=== PATIENT | female | born 1985 | race Caucasian/White ===

== ENCOUNTER 2016-10-20 20:23 | Emergency (ER) | payer OTHER ==
[~2016-10-20] VITALS: Ht 172.7 cm; Wt 70.4 kg
[2016-10-20 20:31] VITALS: BP 147/93; PULSE 90; RESP 18; TEMP 98.4; O2SAT 99
--- NOTE | 2016-10-20 21:04 | PD ---
HPI Chief Complaint: Flank/Kidney Pain Time Seen by Provider: 20:58 Travel History International Travel<30 days: No Contact w/Intl Traveler<30days: No Traveled to known affect area: No History of Present Illness HPI This 31-year-old female is complaining of left flank pain. The pain came on fairly abruptly around 2:00 this afternoon. It is quite severe. She also has some pain in the left side of her abdomen for kidney stone about 34 years ago. At that time was told that there are other stones in her belly. He has passed some. He has been nauseated but she has not vomited. She has not noted any blood in her urine. The pain is severe and constant PFSH Past Medical History Kidney Stones: Yes Immunizations Current: No Influenza Vaccination: No ?: Unknown LMP: 10/06/16 : 1 Para: 1 Miscarriage: 0 Past Surgical History Section: Yes Social History Alcohol Use: No Tobacco Use: No Substance Use: No Allergies-Medications (Allergen,Severity, Reaction): Coded Allergies: No Known Allergies (Verified , 10/20/16) Reported Meds & Prescriptions Reported Meds & Active Scripts Active No Active Prescriptions or Reported Medications Review of Systems General / Constitutional: No: Fever, Chills Eyes: No: Diploplia, Blurred Vision HENT: No: Headaches, Vertigo Cardiovascular: No: Chest Pain or Discomfort, Palpitations Respiratory: No: Shortness of Breath, Wheezing Gastrointestinal: Positive: Nausea, Abdominal Pain, No: Vomiting Genitourinary: Positive: Flank Pain Musculoskeletal: No: Myalgias, Arthralgias Skin: No Rash Neurologic: No: Weakness, Dizziness Psychiatric: No: Anxiety Hematologic/Lymphatic: No: Easy Bruising Physical Exam Narrative GENERAL: Well-developed female SKIN: Focused skin assessment warm/dry. HEAD: Atraumatic. Normocephalic. EYES: Pupils equal and round. No scleral icterus. No injection or drainage. ENT: No nasal bleeding or discharge. Mucous membranes pink and moist. NECK: Trachea midline. No JVD. CARDIOVASCULAR: Regular rate and rhythm. No murmur appreciated. RESPIRATORY: No accessory muscle use. Clear to auscultation. Breath sounds equal bilaterally. GASTROINTESTINAL: Abdomen soft, non-tender, nondistended. Hepatic and splenic margins not palpable. There is some left CVA tenderness MUSCULOSKELETAL: No obvious deformities. No clubbing. No cyanosis. No edema. NEUROLOGICAL: Awake and alert. No obvious cranial nerve deficits. Motor grossly within normal limits. Normal speech. PSYCHIATRIC: Appropriate mood and affect; insight and judgment normal. Data Data Last Documented VS Vital Signs Date Time Temp Pulse Resp B/P Pulse Ox O2 Delivery O2 Flow Rate FiO2 10/20/16 22:08 102 109/61 99 Room Air 10/20/16 20:31 98.4 18 Orders Complete Blood Count With Diff (10/20/16 21:02) Basic Metabolic Panel (Bmp) (10/20/16 21:02) Urinalysis - C+S If Indicated (10/20/16 21:02) Sodium Chlor 0.9% 1000 Ml Inj (Ns 1000 M (10/20/16 21:15) Ondansetron Inj (Zofran Inj) (10/20/16 21:15) Ketorolac Inj (Toradol Inj) (10/20/16 21:15) Hydromorphone Pf Inj (Dilaudid Pf Inj) (10/20/16 21:15) Urine Culture (10/20/16 20:58) Ct Abd/Pel W/O Iv Contrast (10/20/16 21:44) Ed Urine Pregnancytest Poc (10/20/16 21:46) Ceftriaxone Inj (Rocephin Inj) (10/20/16 22:00) Labs Laboratory Tests Test 10/20/16 20:58 White Blood Count 12.7 TH/MM3 Red Blood Count 4.63 MIL/MM3 Hemoglobin 14.2 GM/DL Hematocrit 41.6 % Mean Corpuscular Volume 89.8 FL Mean Corpuscular Hemoglobin 30.8 PG Mean Corpuscular Hemoglobin 34.3 % Concent Red Cell Distribution Width 12.4 % Platelet Count 171 TH/MM3 Mean Platelet Volume 10.4 FL Neutrophils (%) (Auto) 71.6 % Lymphocytes (%) (Auto) 18.9 % Monocytes (%) (Auto) 6.5 % Eosinophils (%) (Auto) 2.0 % Basophils (%) (Auto) 1.0 % Neutrophils # (Auto) 9.1 TH/MM3 Lymphocytes # (Auto) 2.4 TH/MM3 Monocytes # (Auto) 0.8 TH/MM3 Eosinophils # (Auto) 0.3 TH/MM3 Basophils # (Auto) 0.1 TH/MM3 CBC Comment DIFF FINAL Differential Comment Urine Color YELLOW Urine Turbidity CLEAR Urine pH 6.0 Urine Specific [place] 1.005 Urine Protein TRACE mg/dL Urine Glucose (UA) NEG mg/dL Urine Ketones NEG mg/dL Urine Occult Blood MOD Urine Nitrite NEG Urine Bilirubin NEG Urine Leukocyte Esterase MOD Urine RBC 0-3 /hpf Urine WBC 25-49 /hpf Urine WBC Clumps FEW Urine Squamous Epithelial 0-5 /hpf Cells Urine Bacteria FEW /hpf Microscopic Urinalysis Comment CULTURE INDICATED Sodium Level 141 MEQ/L Potassium Level 3.4 MEQ/L Chloride Level 103 MEQ/L Carbon Dioxide Level 29.6 MEQ/L Anion Gap 8 MEQ/L Blood Urea Nitrogen 11 MG/DL Creatinine 0.71 MG/DL Estimat Glomerular Filtration 96 ML/MIN Rate Random Glucose 85 MG/DL Calcium Level 9.1 MG/DL [facility] Medical Decision Making Medical Screen Exam Complete: Yes Emergency Medical Condition: Yes Medical Record Reviewed: Yes Differential Diagnosis Differential includes musculoskeletal pain, pyelonephritis, renal colic Narrative Course Urine does show evidence of infection but that patient's pain seemed out of proportion to be simple pyelonephritis. I have ordered a CT to assess for possible stone. CT scan has been done. There is no acute abnormality. There are nonobstructing small right renal calculi. 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 Patient has received Rocephin. She'll be released with prescription for Bactrim and Percocet Diagnosis Primary Impression: Pyelonephritis Departure Forms: Tests/Procedures, Work Release Enter return to work date: Oct 23, 2016 Scripts Oxycodone-Acetaminophen (Percocet)7.5-325 mg Tab1 Tab PO Q4H PRN (PAIN) #20 TAB Ref 0 Prov:Alec Lazaro MD 10/20/16 Sulfamethoxazole-Trimethoprim (Bactrim DS)800-160 Mg Tab1 Tab PO BID #14 TAB Ref 0 Prov:Alec Lazaro MD 10/20/16 Disposition: 01 DISCHARGE HOME Condition: Stable Alec Lazaro MD Oct 20, 2016 21:04
[2016-10-20] MEDS ORDERED: HYDROmorphone HCL PF 1 MG/ML VIAL IV PUSH ONE (21:15)
[2016-10-20] MEDS ORDERED: KETOROLAC TROMETHAMINE 30 MG/ML (IVP) VIAL IV PUSH ONE (21:15)
[2016-10-20] MEDS ORDERED: SODIUM CHLOR 0.9% 1000 ML INJ 1,000 ML IV ONE (21:15)
[2016-10-20] MEDS ORDERED: ONDANSETRON HCL 4 MG/2 ML VIAL IV PUSH ONE (21:15)
[2016-10-20 21:21] LABS: AUTOMATED NEUTROPHIL # 9.1 TH/MM3 (1.8-7.7); BASOPHIL # 0.1 TH/MM3 (0-0.2); EOSINOPHIL # 0.3 TH/MM3 (0-0.4); GLUCOSE,URINE NEG (NEG); HEMATOCRIT 41.6 % (35.0-46.0); KETONE, URINE NEG (NEG); LYMPH % 18.9 % (9.0-44.0); LYMPHOCYTE # 2.4 TH/MM3 (1.0-4.8); MEAN CELL VOLUME 89.8 FL (80.0-100.0); MEAN CORPUSCULAR HEMOGLOBIN 30.8 PG (27.0-34.0); MEAN CORPUSCULAR HGB CONC 34.3 % (32.0-36.0); MONO % 6.5 % (0.0-8.0); NEUT % 71.6 % (16.0-70.0); NITRITE,URINE NEG (NEG); PLATELET COUNT 171 TH/MM3 (150-450); RED BLOOD COUNT 4.63 MIL/MM3 (4.00-5.30); RED CELL DISTRIBUTION WIDTH 12.4 % (11.6-17.2); WHITE BLOOD COUNT 12.7 TH/MM3 (4.0-11.0)
[2016-10-20 21:25] LABS: BLOOD, URINE MOD (NEG)
[2016-10-20 21:26] LABS: URINE COLOR YELLOW (YELLW/STRAW)
[2016-10-20 21:27] LABS: BACTERIA, URINE FEW /hpf; RBC, URINE 0-3 /hpf (0-3); SQUAMOUS EPITHELIAL CELL URINE 0-5 /hpf (0-5)
[2016-10-20 21:28] LABS: COMMENT (UR) CULTURE INDICATED; CULTURE IF INDICATED CULTURE INDICATED
[2016-10-20 21:46] LABS: POTASSIUM 3.4 MEQ/L (3.5-5.1)
[2016-10-20 21:49] LABS: BICARBONATE 29.6 MEQ/L (21.0-32.0)
[2016-10-20 21:53] LABS: HEMO FLAGS DIFF FINAL
[2016-10-20] MEDS ORDERED: cefTRIAXone INJ 1,000 MG in SODIUM CHLORIDE 0.9% INJ 100 ML IV ONE (22:00)
[2016-10-20 22:08] VITALS: BP 109/61; PULSE 102; O2SAT 99
--- NOTE | 2016-10-20 23:12 | RADHPO ---
EXAM DATE/TIME: 10/20/2016 22:37 [facility] COMPARISON: CT ABDOMEN & PELVIS W/O CONTRAST, September 06, 2012, 15:20. INDICATIONS : Left flank pain. ORAL CONTRAST: No oral contrast ingested. RADIATION DOSE: 10.97 CTDIvol (mGy) MEDICAL HISTORY : None SURGICAL HISTORY : section. ENCOUNTER: Initial ACUITY: 1 day PAIN SCALE: 5/10 LOCATION: Left flank TECHNIQUE: Volumetric scanning of the abdomen and pelvis was performed. Using automated exposure control and ad justment of the mA and/or kV according to patient size, radiation dose was kept as low as reasonably achievable to obtain optimal diagnostic quality images. FINDINGS: LOWER LUNGS: The visualized lower lungs are clear. LIVER: Homogeneous density without lesion. There is no dilation of the biliary tree. No calcified gallston es. SPLEEN: Normal size without lesion. PANCREAS: Within normal limits. KIDNEYS: Normal in size and shape. There is no mass or hydronephrosis. There is a duplicated collecting syste m on the left. 3 tiny stones are seen involving right kidney. The largest measures 2 mm within the lo wer pole. ADRENAL GLANDS: Within normal limits. VASCULAR: There is no aortic aneurysm. BOWEL/MESENTERY: The stomach, small bowel, and colon demonstrate no acute abnormality. There is no free intraperitone al air or fluid. ABDOMINAL WALL: Within normal limits. RETROPERITONEUM: There is no lymphadenopathy. BLADDER: No wall thickening or mass. REPRODUCTIVE: Within normal limits. INGUINAL: There is no lymphadenopathy or hernia. MUSCULOSKELETAL: Within normal limits for patient age. CONCLUSION: 1. No acute abnormality. 2. Nonobstructing small right renal calculi. 3. A duplicated collecting system is seen involving the left kidney. Jeremiah Anderson Jr., MD on October 20, 2016 at 23:07 Board Certified Radiologist. This report was verified electronically.
[2016-10-20] MEDS ORDERED: BACT800T5 PO (23:19)
[2016-10-20] MEDS ORDERED: PERC7.5T13 PO (23:19)
== END 2016-10-20 23:33 | disposition home or self-care (01) ==
LOC: PHED 20:23
DX: N12 Tubulo-interstitial nephritis, not specified as acute or chronic (principal); N20.0 Calculus of kidney
CPT/HCPCS: 74176; 80048; 81001; 84703; 85025; 87077; 87086; 87186; 96361; 96365; 96375; 99284; J0696; J1170; J1885; J2405; J7030